=== PATIENT | female | born 1995 | race Caucasian/White ===

== ENCOUNTER 2024-02-26 10:54 | Emergency (ER) | payer OTHER ==
[2024-02-26 11:01] VITALS: BP 115/78; PULSE 77; RESP 18; TEMP 97.7; BMI 24.7
[2024-02-26 12:16] LABS: EPI CELLS >36 /uL (0-25.1); HYALINE CASTS 1 /uL (0-3.1); PH,URINE 5.5 (5.0-8.0); URINE APPEARANCE CLEAR; URINE BILIRUBIN NEGATIVE (NEGATIVE); URINE COLOR YELLOW; URINE GLUCOSE (UA) NEGATIVE (NEGATIVE); URINE KETONE NEGATIVE (NEGATIVE); URINE LEUK ESTERASE 1+ (NEGATIVE); URINE NITRITE NEGATIVE (NEGATIVE); URINE PROTEIN NEGATIVE (NEGATIVE); URINE RBC 18 /uL (0-23.9); URINE WBC 4 /uL (0-25.8)
[2024-02-26 12:18] LABS: URINE BACTERIA 66.2 /uL (0-1359)
== END 2024-02-26 12:49 | disposition home or self-care (01) ==
LOC: JERFT 10:54
DX: R21 Rash and other nonspecific skin eruption (principal); N76.0 Acute vaginitis
CPT/HCPCS: 36415; 81003; 84703; 87086; 87491; 87591; 87661; 99284-25